=== PATIENT | male | born 1970 | race Caucasian/White ===

== ENCOUNTER 2023-05-12 11:09 | Emergency (ER) | payer OTHER ==
[~2023-05-12] VITALS: Ht 177.8 cm; Wt 82.0 kg
[2023-05-12 11:17] VITALS: PULSE 88; TEMP 97.7
[2023-05-12] MEDS: normal saline 1000ml 1,000 ML IV SCH ×2 (11:30→12:19)
[2023-05-12 12:06] LABS: BASOPHILS % (AUTO) 0.9 % (0-1); EOSINOPHILS # (AUTO) 0.1 X10'3 (0-0.9); EOSINOPHILS % (AUTO) 3.2 % (0-6); HEMOGLOBIN 12.1 g/dl (14.0-17.9); LYMPHOCYTES # (AUTO) 0.4 X10'3 (1.1-4.8); LYMPHOCYTES % (AUTO) 10.3 % (21-51); MEAN CORPUSCULAR HEMOGLOBIN 29.1 PG (27.0-31.0); MEAN CORPUSCULAR HGB CONC 32.7 g/dL (33.0-36.5); MEAN PLATELET VOLUME 9.6 FL (7.4-10.4); MONOCYTES # (AUTO) 0.4 X10'3 (0-0.9); MONOCYTES % (AUTO) 10.9 % (2-12); NEUTROPHILS # (AUTO) 2.9 X10'3 (1.8-7.7); NEUTROPHILS % (AUTO) 74.7 % (42-75); PLATELET COUNT 172 X10'3 (140-440); RED BLOOD COUNT 4.16 X10'6 (4.70-6.10); RED CELL DISTRIBUTION WIDTH 14.8 % (11.5-14.5); WHITE BLOOD COUNT 3.9 X10'3 (4.5-11.0)
[2023-05-12 12:19] LABS: ALANINE AMINOTRANSFERASE 30 U/L (12-78); ALBUMIN 3.8 G/DL (3.4-5.0); ALBUMIN/GLOBULIN RATIO 1.4 (1.1-1.5); ALKALINE PHOSPHATASE 53 IU/L (46-116); ANION GAP 6 (8-16); ASPARTATE AMINO TRANSFERASE 24 U/L (10-37); BILIRUBIN,TOTAL 0.7 MG/DL (0.1-1.0); BLOOD UREA NITROGEN 9 MG/DL (7-18); CALCIUM 8.5 MG/DL (8.5-10.1); CHLORIDE 103 MMOL/L (99-107); CREATININE 0.82 MG/DL (0.60-1.10); GLUCOSE 91 MG/DL (70-104); SODIUM 137 MMOL/L (135-145); TOTAL CARBON DIOXIDE 28.1 MMOL/L (24-32); TOTAL PROTEIN 6.5 G/DL (6.4-8.2); eCRCL 106 ML/MIN; eGFR > 90 ML/MIN
[2023-05-12] MEDS ORDERED: LIDOcaine 1% W/epiNEPHrine 1:100,000 20ml vial IJ ONE (13:20)
[2023-05-12 14:59] VITALS: BP 166/99; RESP 18; O2SAT 98
== END 2023-05-12 15:04 | disposition home or self-care (01) ==
LOC: ER 11:10
DX: S01.21XA Laceration without foreign body of nose, initial encounter (principal)
CPT/HCPCS: 12013; 36415; 70486; 80053; 85025; 96360; 96361; 99284; J7030

== ENCOUNTER 2024-08-16 05:41 | Emergency (ER) | payer OTHER ==
[~2024-08-16] VITALS: Ht 177.8 cm; Wt 75.0 kg
[2024-08-16] MEDS ORDERED: CEPH-585 PO (06:33)
[2024-08-16] MEDS ORDERED: KEN0.1O TOP (06:33)
[2024-08-16 06:56] VITALS: PULSE 78
[2024-08-16] MEDS: cephalexin 250mg capsule PO ONE (07:04)
[2024-08-16 07:17] VITALS: BP 159/97; RESP 78; TEMP 99; O2SAT 99
== END 2024-08-16 07:26 | disposition home or self-care (01) ==
LOC: ER 05:42
DX: N49.2 Inflammatory disorders of scrotum (principal)
CPT/HCPCS: 99283